=== PATIENT | female | born 1950 ===

== ENCOUNTER 2017-05-14 12:53 | Emergency (ER) | payer SELFPAY ==
[~2017-05-14] VITALS: Ht 170.2 cm; Wt 68.0 kg
[~2017-05-14 12:53] MED LIST: MULTIVITAMINS1 EAC8 PO; [UNRECOGNIZED DRUG - OTHER] PO
[2017-05-14 12:54] VITALS: BP 118/86
[2017-05-14] MEDS ORDERED: Ketorolac 30mg Inj IV ONE (13:30)
[2017-05-14 13:56] LABS: BASOPHILS % (AUTO) 1.4 % (0.0-2.0); HEMATOCRIT 40.8 % (37.0-47.0); HEMOGLOBIN 13.2 G/DL (12.0-16.0); LYMPHOCYTES % (AUTO) 11.1 % (20.0-45.0); MEAN CORPUSCULAR VOLUME 88 FL (80-99); MONOCYTES % (AUTO) 6.3 % (1.0-10.0); NEUTROPHILS % (AUTO) 81.2 % (45.0-75.0); PLATELET COUNT 154 K/UL (150-450); RED BLOOD COUNT 4.65 M/UL (4.20-5.40); RED CELL DISTRIBUTION WIDTH 12.6 % (11.6-14.8); WHITE BLOOD COUNT 5.2 K/UL (4.8-10.8)
[2017-05-14 14:14] LABS: APPEARANCE,URINE CLEAR; BILIRUBIN, URINE NEGATIVE (NEGATIVE); GLUCOSE, URINE (UA) NEGATIVE (NEGATIVE); KETONES,URINE NEGATIVE (NEGATIVE); LEUKOCYTE ESTERASE ,URINE NEGATIVE (NEGATIVE); NITRITE,URINE NEGATIVE (NEGATIVE); PH,URINE 7 (4.5-8.0); PROTEIN,URINE 1+ (NEGATIVE); UROBILINOGEN,URINE NORMAL MG/DL (0.0-1.0)
[2017-05-14 14:16] LABS: ANION GAP 7 mmol/L (5-15); BLOOD UREA NITROGEN 10 mg/dL (7-18); CALCIUM 8.8 MG/DL (8.5-10.1); CARBON DIOXIDE 27 MMOL/L (21-32); CHLORIDE 96 MMOL/L (98-107); CREATININE 0.8 MG/DL (0.55-1.30); POTASSIUM 4.2 MMOL/L (3.5-5.1); SODIUM 130 MMOL/L (136-145)
[2017-05-14 14:21] LABS: ALANINE AMINOTRANSFERASE 15 U/L (12-78); ALBUMIN 3.6 G/DL (3.4-5.0); ALKALINE PHOSPHATASE 69 U/L (46-116); ASPARTATE AMINO TRANSFERASE 28 U/L (15-37); BILIRUBIN,TOTAL 0.4 MG/DL (0.2-1.0)
[2017-05-14 14:41] LABS: COLOR,URINE YELLOW
[2017-05-14 15:35] VITALS: BP 103/60
--- NOTE | 2017-05-15 07:06 | Emergency Room Report ---
History of Present Illness General Chief Complaint: Dizziness Source: Patient, Family Member - and and Present Illness HPI 66-year-old female brought in with family for 2-3 days of generalized weakness, nausea, bodyaches, intermittent headache, subjective fever and chills at home and occasional abdominal pain. Symptoms initially started with generalized weakness and myalgias however the following day patient ate left over food that was in there for greater that was actually not functioning properly and then also developed abdominal pain with nausea after that. Denies previous abdominal or pelvic surgery. Denies diarrhea, foreign travel. No other sick contacts at home. Denies neck stiffness or pain. patient initially went to urgent care, had orthostatic hypotension, and so urgent care had EMS bring to ER. Should not on any blood pressure medication or beta blockers. Allergies: Coded Allergies: No Known Allergies (Unverified , 05/14/17) Patient History Past Medical History: none Past Surgical History: none Pertinent Family History: none Social History: Denies: smoking, alcohol use, drug use Now: No Immunizations: UTD Reviewed Nursing Documentation: PMH: Agreed, PSxH: Agreed Nursing Documentation-PMH Past Medical History: No Stated History Hx Cardiac Problems: No Hx Cancer: No Hx Gastrointestinal Problems: Yes - ABDOMINAL PAIN Hx Neurological Problems: No Review of Systems All Other Systems: negative except mentioned in HPI Physical Exam Vital Signs Date Time Temp Pulse Resp B/P (MAP) Pulse Ox O2 Delivery O2 Flow Rate FiO2 05/14/17 12:51 98.1 72 16 89/60 99 Room Air Sp02 EP Interpretation: reviewed, normal General Appearance: normal inspection, well appearing, no apparent distress, alert, GCS 15, non-toxic, other - well appearing, interacting, smiling Head: normocephalic, atraumatic Eyes: bilateral eye PERRL, bilateral eye EOMI ENT: normal ENT inspection, hearing grossly normal, normal pharynx, no angioedema, normal voice, TMs + canals normal, uvula midline, moist mucus membranes Neck: normal inspection, full range of motion, supple, thyroid normal, no meningismus, no bony tend Respiratory: normal inspection, lungs clear, normal breath sounds, no rhonchi, no respiratory distress, no retraction, no accessory muscle use, no wheezing, speaking full sentences Cardiovascular #1: regular rate, rhythm, no edema, no JVD, normal capillary refill Gastrointestinal: normal inspection, normal bowel sounds, non tender, soft, no mass, no peritonitis, non-distended, no guarding, no hernia, no pulsatile mass Genitourinary: no CVA tenderness Musculoskeletal: normal inspection, back normal, normal range of motion, no calf tenderness, pelvis stable, Farhana's Sign negative Neurologic: normal inspection, alert, oriented x3, responsive, assistant credit manager III-XII nml as tested, motor strength/tone normal, cerebellar normal, normal gait, speech normal Psychiatric: normal inspection, judgement/insight normal, mood/affect normal, no suicidal/homicidal ideation, no delusions Skin: normal inspection, normal color, no rash Lymphatic: normal inspection, no adenopathy Medical Decision Making Diagnostic Impression: Primary Impression: Gastroenteritis ER Course initially low blood pressure improved with saline bolus Not tachycardic, tachypneic or febrile Feels better after IV fluid and medication has no focal neurological deficits to suggest meningitis or SAH Headache, weakness, likely due to dehydration as evident by orthostasis Labs: no leukocytosis, H&H stable, no major metabolic abnormalities Urine negative for infection Is likely a combination of viral flu plus or minus viral gastroenteritis Advised bland diet fluids and close primary care followup ER course: Patient has remained stable during ED stay. Disposition: Patient is to be discharged to home. Patient is instructed to follow up with their primary care doctor within 5 days. Strict return precautions discussed with patient such as fever, chills, worsening/severe pain, nausea, vomiting, which may indicate severe illness. Patient verbalizes understanding and agrees with plan. Please note that this Emergency Department Report was dictated using [employer] technology software, occasionally this can lead to erroneous entry secondary to interpretation by the dictation equipment Rhythm Strip Diag. Results EP Interpretation: yes Rate: 65 Rhythm: NSR, no PVC's, no ectopy Last Vital Signs Date Time Temp Pulse Resp B/P (MAP) Pulse Ox O2 Delivery O2 Flow Rate FiO2 05/14/17 15:35 98.0 65 16 103/60 98 Room Air Status: improved Disposition: HOME, SELF-CARE Condition: Improved Referrals: NOT CHOSEN IPA/MD,REFERRING (PCP) Patient Instructions: Viral Gastroenteritis, Adult, [id number] JAREK HOLDEN M.D. May 15, 2017 07:06
== END 2017-05-14 15:35 | disposition home or self-care (01) ==
LOC: EDBD 12:53 → EMR 15:30
DX: K52.9 Noninfective gastroenteritis and colitis, unspecified (principal)
CPT/HCPCS: 36415; 80053; 81003; 85025; 96361; 96374; 96375; 99284; J1885; J2405